=== PATIENT | female | born 1965 | race Caucasian/White ===

== ENCOUNTER 2018-10-19 15:03 | Emergency (ER) | payer OTHER ==
--- OUTSIDE RECORDS SUMMARY | 2018-10-19 15:06 | XMS REPORT | Clinical Summary ---
:1965 Author Organization [facility] Address [facility] [place] [address] Care Team Providers Name Role Phone Unavailable Primary Care Provider Unavailable Allergies No Known Allergies Medications Medication Sig Dispensed Refills Start End Date Status Date HYDROcodone-acetami Take 1 tablet by 0 Active nophen (NORCO) mouth every 6 10-325 mg tablet hours as needed for Pain. ferrous sulfate 325 Take 325 mg by 0 Active mg (65 mg iron) mouth daily (with tablet breakfast). zolpidem (AMBIEN) Take 10 mg by 0 Active 10 mg Tab mouth at bedtime nightly. busPIRone (BUSPAR) Take 15 mg by 0 Active 15 mg tablet mouth 2 times daily. LEVOTHYROXINE Take 1 tablet by 0 Active SODIUM mouth daily. (LEVOTHYROXINE OR) traZODone (DESYREL) Take 50 mg by 0 Active 25 mg tablet mouth at bedtime nightly. DULoxetine Take 60 mg by 0 Active (CYMBALTA) 60 mg mouth daily. delayed release capsule Carbamazepine 200 Take 200 mg by 0 Active mg 12 hr capsule mouth 2 times daily. hydrOXYzine pamoate Take 25 mg by 0 Active 25 mg capsule mouth 3 times daily as needed for Itching. DULoxetine Take 60 mg by 0 Active (CYMBALTA) 60 mg mouth daily. delayed release capsule nystatin (NYSTOP) Apply to affected 15 g 0 Active 100,000 unit/gram area 4 times 4 topical daily. powderIndications: Rheumatoid arthritis(714.0) INSULIN SYRINGE 1mL Use to inject 1 Box 1 Active 30GX5/16" (MONOJECT medication 6 ULTRACOMFORT weekly. Use a new INSULIN SYR 1ML syringe each 30GX5/16") time. syringe-needleIndic ations: Rheumatoid arthritis involving multiple sites with positive rheumatoid factor INSULIN SYRINGE 1mL Use to inject 1 Box 2 Active 30GX5/16" (MONOJECT medication 6 ULTRACOMFORT weekly. Use a new INSULIN SYR 1ML syringe each 30GX5/16") time. syringe-needleIndic ations: Rheumatoid arthritis involving right wrist with positive rheumatoid factor, Juvenile arthritis INSULIN SYRINGE 1mL Use to inject 1 Box 2 Active 30GX5/16" (MONOJECT medication 6 ULTRACOMFORT weekly. Use a new INSULIN SYR 1ML syringe each 30GX5/16") time. syringe-needleIndic ations: Rheumatoid arthritis involving right wrist with positive rheumatoid factor, Juvenile arthritis folic acid Take 2 tablets by 180 tablet 2 Active (FOLVITE) 1 mg mouth daily. 7 tabletIndications: Rheumatoid arthritis involving multiple sites with positive rheumatoid factor ergocalciferol Take 1 capsule by 4 capsule 3 Active (VITAMIN D2) 50,000 mouth weekly. 8 unit capsuleIndications: Vitamin D deficiency leucovorin calcium Take 1 tablet by 12 tablet 1 Active (LEUCOVORIN) 5 mg mouth weekly 8 tabletIndications: after Rheumatoid methotrexate arthritis involving injection every right wrist with week. positive rheumatoid factor predniSONE Take 1 tablet by 45 tablet 1 Active (DELTASONE) 5 mg mouth every 48 8 tabletIndications: hours. Rheumatoid arthritis involving multiple sites with positive rheumatoid factor methotrexate, PF, Inject 1 mL under 5 mL 4 Active 25 mg/mL the skin weekly. 8 injectionIndication s: Rheumatoid arthritis involving right wrist with positive rheumatoid factor, Juvenile arthritis adalimumab (HUMIRA Inject 0.8 mL 2 Each 4 Active PEN) 40 mg/0.8 mL under the skin 8 pen kit every 14 days. injectionIndication s: Rheumatoid arthritis involving multiple sites with positive rheumatoid factor INSULIN SYRINGE 1mL Use to inject 1 Box 1 Active 30GX5/16" (MONOJECT medication 8 ULTRACOMFORT weekly. Use a new INSULIN SYR 1ML syringe each 30GX5/16") time. syringe-needleIndic ations: Rheumatoid arthritis involving right wrist with positive rheumatoid factor, Juvenile arthritis ergocalciferol Take 1 capsule by 4 capsule 3 01/22/20 Discontinued (VITAMIN D) 50,000 mouth weekly. 4 18 unit capsuleIndications: Rheumatoid arthritis(714.0) methotrexate Take 8 tablets by 40 tablet 4 05/20/20 Discontinued (TREXALL) 2.5 mg mouth weekly. 5 18 tabletIndications: Rheumatoid arthritis(714.0) methotrexate, PF, Inject 0.8 mL SC 4 mL 4 05/20/20 Discontinued 25 mg/mL every week.. 6 18 injectionIndication s: Rheumatoid arthritis involving multiple sites with positive rheumatoid factor adalimumab (HUMIRA Inject 0.8 mL 2 Each 4 01/22/20 Discontinued PEN) 40 mg/0.8 mL under the skin 6 18 pen kit every 14 days. injectionIndication s: Rheumatoid arthritis involving multiple sites with positive rheumatoid factor predniSONE Take 1 tablet by 30 tablet 4 05/20/20 Discontinued (DELTASONE) 5 mg mouth daily. 7 18 tabletIndications: Rheumatoid arthritis involving right wrist with positive rheumatoid factor, Juvenile arthritis adalimumab (HUMIRA Inject 0.8 mL 2 Each 4 05/20/20 Discontinued PEN) 40 mg/0.8 mL under the skin 8 18 pen kit every 14 days. injectionIndication s: Rheumatoid arthritis involving right wrist with positive rheumatoid factor, Juvenile arthritis leucovorin calcium Take 1 tablet by 4 tablet 4 01/22/20 Discontinued (LEUCOVORIN) 5 mg mouth weekly 8 18 tabletIndications: after Rheumatoid methotrexate arthritis involving injection every right wrist with week. positive rheumatoid factor predniSONE Take 1 tablet by 90 tablet 1 01/22/20 Discontinued (DELTASONE) 5 mg mouth daily. 8 18 tabletIndications: Rheumatoid arthritis involving multiple sites with positive rheumatoid factor methotrexate, PF, Inject 1 mL under 5 mL 4 01/22/20 Discontinued 25 mg/mL the skin weekly. 8 18 injectionIndication s: Rheumatoid arthritis involving right wrist with positive rheumatoid factor, Juvenile arthritis INSULIN SYRINGE 1mL Use to inject 1 Box 1 05/20/20 Discontinued 30GX5/16" (MONOJECT medication 8 18 ULTRACOMFORT weekly. Use a new INSULIN SYR 1ML syringe each 30GX5/16") time. syringe-needleIndic ations: Rheumatoid arthritis involving right wrist with positive rheumatoid factor, Juvenile arthritis leucovorin calcium Take 1 tablet by 4 tablet 4 05/20/20 Discontinued (LEUCOVORIN) 5 mg mouth weekly 8 18 tabletIndications: after Rheumatoid methotrexate arthritis involving injection every right wrist with week. positive rheumatoid factor predniSONE Take 1 tablet by 45 tablet 1 05/20/20 Discontinued (DELTASONE) 5 mg mouth every 48 8 18 tabletIndications: hours. Rheumatoid arthritis involving multiple sites with positive rheumatoid factor methotrexate, PF, Inject 1 mL under 5 mL 4 05/20/20 Discontinued 25 mg/mL the skin weekly. 8 18 injectionIndication s: Rheumatoid arthritis involving right wrist with positive rheumatoid factor, Juvenile arthritis adalimumab (HUMIRA Inject 0.8 mL 2 Each 4 05/20/20 Discontinued PEN) 40 mg/0.8 mL under the skin 8 18 pen kit every 14 days. 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 Hospital Encounter Lab Aston Trammell MD Seropositive rheumatoid arthritis; Vitamin D deficiency 01/21/2018 Hospital Encounter Radiology Aston Trammell MD Seropositive rheumatoid arthritis 01/21/2018 Office Visit Rheumatology Aston Trammell MD Seropositive rheumatoid arthritis (Primary Dx); Josue Guy, Osteoarthritis of both knees, unspecified osteoarthritis type; Cherise Rees MD Stomatitis; Vitamin D deficiency; Lip lesion; Rheumatoid arthritis involving right wrist with positive rheumatoid factor; Rheumatoid arthritis involving multiple sites with positive rheumatoid factor; 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 Last Filed Vital Signs Vital Sign Reading Time Taken Blood Pressure 121/74 05/20/2018 9:11 AM CDT Pulse 86 05/20/2018 9:11 AM CDT Temperature 36.7 C (98.1 F) 05/20/2018 9:11 AM CDT Respiratory Rate 17 05/20/2018 9:11 AM CDT Oxygen Saturation 100% 01/21/2018 7:15 AM CDT Inhaled Oxygen Concentration - - Weight 74.8 kg (165 lb) 05/20/2018 9:11 AM CDT Height 167.6 cm (5' 6") 05/20/2018 9:11 AM CDT Body Mass Index 26.63 05/20/2018 9:11 AM CDT Plan of Treatment Health Maintenance Due Date Last Done Comments Cervical Cancer Scrn (3 Yrs) 1986 Breast Cancer Scrn (Yearly) 2005 Colorectal Cancer Scrn Annual (FIT/FOBT) Age 50 to 75 2015 IMM Influenza Seasonal May to October (>/=19 yrs) 05/03/2018 Procedures Procedure Name Priority Date/Time Associated Diagnosis Comments CRP, HIGH SENS Routine 05/20/2018 11:15 Rheumatoid arthritis Results for this AM CDT involving right procedure are in wrist with positive the results rheumatoid factor section. SED RATE Routine 05/20/2018 11:15 Rheumatoid arthritis Results for this AM CDT involving right procedure are in wrist with positive the results rheumatoid factor section. COMPREHENSIVE Routine 05/20/2018 11:15 Rheumatoid arthritis Results for this METABOLIC PANEL(DBIL AM CDT involving right procedure are in NOT INCLUDED) wrist with positive the results rheumatoid factor section. CBC/DIFF Routine 05/20/2018 11:15 Rheumatoid arthritis Results for this AM CDT involving right procedure are in wrist with positive the results rheumatoid factor section. QUANTIFERON TB GOLD Routine 01/21/2018 10:25 Results for this AM CDT procedure are in the results section. VIT D, 25-HYDROXY Routine 01/21/2018 10:25 Results for this AM CDT procedure are in the results section. QUANTIFERON TB GOLD Routine 01/21/2018 10:25 AM CDT SED RATE Routine 01/21/2018 10:25 Results for this AM CDT procedure are in the results section. C-REACTIVE PROT Routine 01/21/2018 10:25 Results for this AM CDT procedure are in the results section. LIVER PROFILE Routine 01/21/2018 10:25 Seropositive Results for this AM CDT rheumatoid arthritis procedure are in the results section. BASIC METABOLIC PANEL Routine 01/21/2018 10:25 Seropositive Results for this AM CDT rheumatoid arthritis procedure are in the results section. CBC/DIFF Routine 01/21/2018 10:25 Seropositive Results for this AM CDT rheumatoid arthritis procedure are in the results section. XRAY HAND 3 VIEWS - Routine 01/21/2018 10:05 Seropositive Results for this ROUTINE AM CDT rheumatoid arthritis procedure are in the results section. XRAY HAND 3 VIEWS - Routine 01/21/2018 10:05 Seropositive Results for this ROUTINE AM CDT rheumatoid arthritis procedure are in the results section. after 10/18/2017 Results COMPREHENSIVE METABOLIC PANEL(DBIL NOT INCLUDED) (05/20/2018 11:15 AM CDT) Albumin 3.1 (L) 3.4 - 5.0 g/dL [facility] 1 Calcium 8.6 8.50 - 10.20 [facility] 1 mg/dL CO2 28 21 - 32 mmol/L [facility] 1 Chloride 95 (L) 98 - 107 mmol/L [facility] 1 Creatinine 0.56 (L) 0.60 - 1.30 [facility] 1 mg/dL Glucose 95 70 - 99 mg/dL [facility] 1 Alk Phos 115 45 - 117 U/L [facility] 1 Potassium 3.9 3.50 - 5.10 [facility] 1 mmol/L Sodium 129 (L) 136 - 145 mmol/L [facility] 1 ALT 27 12 - 78 U/L [facility] 1 AST 10 (L) 15 - 37 U/L [facility] 1 Urea Nitrogen 10 7 - 18 mg/dL [facility] 1 T Bilirubin 0.4 0.2 - 1.0 mg/dL [facility] 1 T Protein 6.4 6.4 - 8.2 g/dL [facility] 1 GFR, Estimated >60 mL/min/1.73 m2 [facility] 1 GFR, Estim, Afr-Am >60 mL/min/1.73 m2 [facility] 1 Anion Gap 6 [facility] 1 Specimen Blood Performing Organization Address [facility] Phone Number [facility] 1 CRP, HIGH SENS (05/20/2018 11:15 AM CDT) CRP, high sens 63.034 (H) <1.0 mg/dL [facility] 1 Specimen Blood Performing Organization Address [facility] Phone Number [facility] 1 SED RATE (05/20/2018 11:15 AM CDT)Only the most recent of2 resultswithin the time period is included. Sed Rate 18 <30 mm/Hr [facility] 2 Specimen Blood Performing Organization Address [facility] Phone Number [facility] 2 CBC/DIFF (05/20/2018 11:15 AM CDT)Only the most recent of2 resultswithin the time period is included. WBC 6.5 4.5 - 11.0 K/uL [facility] 2 RBC 3.46 (L) 4.20 - 5.40 [facility] 2 M/uL Hemoglobin 10.0 (L) 12.0 - 16.0 [facility] 2 g/dL Hematocrit 33.8 (L) 37.0 - 47.0 % [facility] 2 MCV 98 (H) 82 - 92 fL [facility] 2 MCH 28.9 27.0 - 32.0 pg [facility] 2 MCHC 29.6 (L) 32.0 - 36.0 [facility] 2 g/dL RDW 54.0 (H) 36.4 - 46.3 fL [facility] 2 Platelet 421 (H) 150 - 400 K/uL [facility] 2 Mean Platelet Volume 9.7 9.4 - 12.4 fL [facility] 2 Percent NRBC 0.0 [facility] 2 Absolute NRBC 0.00 [facility] 2 Neutrophil 69.1 34.0 - 70.0 % [facility] 2 Lymphocyte 25.1 20.0 - 50.0 % [facility] 2 Monocyte 4.0 (L) 5.0 - 12.0 % [facility] 2 Eosinophil 1.2 0.7 - 5.0 % [facility] 2 Basophil 0.3 0.1 - 1.2 % [facility] 2 Pct Immat Gran 0.3 0.0 - 0.5 [facility] 2 Neutrophil, Abs 4.48 1.56 - 6.13 [facility] 2 K/uL Lymphocyte, Abs 1.63 1.18 - 3.74 [facility] 2 K/uL Monocyte, Abs 0.26 0.24 - 0.36 [facility] 2 K/uL Eosinophil, Abs 0.08 0.04 - 0.36 [facility] 2 K/uL Basophil, Abs 0.02 0.01 - 0.08 [facility] 2 K/uL Absol Immat Gran 0.02 0.00 - 0.03 [facility] 2 K/uL Specimen Blood Performing Organization Address City/State/[facility] Phone Number [facility] 2 VIT D, 25-HYDROXY (01/21/2018 10:25 AM CDT) Vit D, 25-Hydroxy 26.7 (L) 30 - 100 [facility] DIAGNOSTIC Comment: ng/mL IMMUNOLOGY Vitamin D deficiency has been defined by the [place] of Medicine and Endocrine Society guideline as a level of serum 25-OH Vitamin D less than 20 ng/mL. The Endocrine Society further defines Vitamin D insufficiency as a level between 21 and 29 ng/mL and sufficiency as a level between 30 and 100 ng/mL. Performing Organization Address City/State/Zipcode Phone Number [facility] BT DIAGNOSTIC IMMUNOLOGY QUANTIFERON TB GOLD (01/21/2018 10:25 AM CDT) Quantiferon TBGold Negative LABORATORY Reference range: Negative [facility] [place] QFT Pos Criteria Comment LABORATORY (note) CORPORATION OF To be considered positive a specimen should have a TB Ag minus Nil [place] value greater than or equal to 0.35 IU/mL and in addition the TB Ag minus Nil value must be greater than or equal to 25% of the Nil value. There may be insufficient information in these values to differentiate between some negative and some indeterminate test values. QFT TB Ag 0.05 LABORATORY Unit: IU/mL [facility] QFT Nil 0.06 LABORATORY Unit: IU/mL [facility] QFT Mitogen 6.77 LABORATORY Unit: IU/mL [facility] QFT TB Ag minusNil <0.00 LABORATORY Unit: IU/mL [facility] Interpretation Comment LABORATORY (note) CORPORATION OF The QuantiFERON TB Gold (in Tube) assay is intended for use as an aid [place] in the diagnosis of TB infection. Negative results suggest that there is no TB infection. In patients with high suspicion of exposure, a negative test should be repeated. A positive test indicates infection with Mycobacterium tuberculosis. Among individuals without tuberculosis infection, a positive test may be due to exposure to M. k[place]ii, M. szulgai or M. marinum. On the Internet, go to cdc.gov/tb for further details. Performing Organization Address City/[facility]/Zipcode Phone Number [facility] OF [address] [place] [address] [address] LIVER PROFILE (01/21/2018 10:25 AM CDT) T Protein 7.6 6.4 - 8.2 g/dL [facility] 1 Albumin 4.1 3.4 - 5.0 g/dL [facility] 1 T Bilirubin 0.3 0.2 - 1.0 mg/dL [facility] 1 Alk Phos 120 (H) 45 - 117 U/L [facility] 1 AST 13 (L) 15 - 37 U/L [facility] 1 ALT 25 12 - 78 U/L [facility] 1 D Bilirubin <0.1 0.0 - 0.2 mg/dL [facility] 1 Specimen Blood Performing Organization Address [facility]/Zipcode Phone Number [facility] 1 C-REACTIVE PROT (01/21/2018 10:25 AM CDT) C-Reactive Prot 0.758 <10 mg/dL [facility] 3 Performing Organization Address [facility] Phone Number [facility] 3 BASIC METABOLIC PANEL (01/21/2018 10:25 AM CDT) CO2 27 21 - 32 mmol/L [facility] 1 Chloride 106 98 - 107 mmol/L [facility] 1 Potassium 5.4 (H) 3.50 - 5.10 [facility] 1 mmol/L Sodium 139 136 - 145 mmol/L [facility] 1 Glucose 117 (H) 70 - 99 mg/dL [facility] 1 Urea Nitrogen 12 7 - 18 mg/dL [facility] 1 Creatinine 0.85 0.60 - 1.30 mg/dL [facility] 1 Anion Gap 6 [facility] 1 Calcium 9.8 8.50 - 10.20 [facility] 1 mg/dL GFR, Estimated >60 mL/min/1.73 m2 [facility] 1 GFR, Estim, Afr-Am >60 mL/min/1.73 m2 [facility] 1 Specimen Blood Performing Organization Address City/State/Zipcode Phone Number [facility] 1 XRAY HAND 3 VIEWS - ROUTINE (01/21/2018 10:05 AM CDT)Only the most recent of2 resultswithin the time period is included. Impressions Performed At IMPRESSION:Intercarpal and metacarpophalangeal joint narrowing, SMS severe at the metacarpophalangeal joint of the thumb on the left are unchanged from 2016. No new erosions and narrowing in the interim. Signed By: Meme Mcintyre MD, 01/21/2018 10:31 AM Narrative Performed At EXAM: XR BILATERAL HAND 3 VIEWS SMS DATE:01/21/2018 10:06 AM INDICATION: History of seropositive RA / Juvenile arthritis. Seropositive rheumatoid arthritis COMPARISON: 03/13/2016 TECHNIQUE:PA, lateral and oblique hand radiographs DISCUSSION: Diffuse, mild intercarpal narrowing is present bilaterally, without acute erosions. Metacarpophalangeal joint narrowing is most evident at the thumb, index, middle and small finger MCP joints on the left and small metacarpophalangeal joints on the right. Chronic erosive change and secondary osteoarthrosis of present at the thumb metacarpophalangeal joint on the left, not significantly changed in appearance from 03/13/2016. No new erosions. Small osteophytes are present at the dorsal aspect of the DIP joints. No soft tissue abnormality is identified. Procedure Note Interface, Rad/Mammog In - 01/21/2018 10:36 AM CDT EXAM: XR BILATERAL HAND 3 VIEWS DATE: 01/21/2018 10:06 AM INDICATION: History of seropositive RA / Juvenile arthritis. Seropositive rheumatoid arthritis COMPARISON: 03/13/2016 TECHNIQUE: PA, lateral and oblique hand radiographs DISCUSSION: Diffuse, mild intercarpal narrowing is present bilaterally, without acute erosions. Metacarpophalangeal joint narrowing is most evident at the thumb, index, middle and small finger MCP joints on the left and small metacarpophalangeal joints on the right. Chronic erosive change and secondary osteoarthrosis of present at the thumb metacarpophalangeal joint on the left, not significantly changed in appearance from 03/13/2016. No new erosions. Small osteophytes are present at the dorsal aspect of the DIP joints. No soft tissue abnormality is identified. IMPRESSION IMPRESSION: Intercarpal and metacarpophalangeal joint narrowing, severe at the metacarpophalangeal joint of the thumb on the left are unchanged from 2016. No new erosions and narrowing in the interim. Signed By: Meme Mcintyre MD, 01/21/2018 10:31 AM Performing Organization Address City/State/[facility] Phone Number SMS after 10/18/2017 Insurance Payer Benefit Plan / Subscriber ID Effective Phone Address Type Group Dates [facility] MEDIC[facility] xxxxxxxxx 2017-Prese [phone] [phone] [place] [address] [place] 2017-Pres [phone] [place] [address] (Home) Mg [address] [place] [address]
--- OUTSIDE RECORDS SUMMARY | 2018-10-19 15:06 | XMS REPORT ---
:1965 [facility] [address] [place] [address] Care Team Providers Name Role Phone Unavailable Unavailable Unavailable Problems This patient has no known problems. Allergies, Adverse Reactions, Alerts This patient has no known allergies or adverse reactions. Medications This patient has no known medications. Encounters Start End Encounter Admission Attending Care Care Encounter Date/Time Date/Time Type Type Clinicians Facility Department ID 2018-09-09 2018-09-09 Outpatient [facility] [id number] 00:00:00 00:00:00 2018-09-09 2018-09-09 Outpatient [facility] [id number] 00:00:00 00:00:00 2018-08-17 2018-08-17 Outpatient [facility] [id number] 00:00:00 00:00:00 2018-06-18 2018-06-18 Outpatient [facility] [id number] 00:00:00 00:00:00 2018-05-20 2018-05-20 Outpatient [facility] [id number] 10:57:31 10:57:31 2018-05-20 2018-05-20 Outpatient [facility] [id number] 09:11:07 09:11:07 2018-02-01 2018-02-01 Outpatient [facility] [id number] 00:00:00 00:00:00 2018-01-21 2018-01-21 Outpatient [facility] [id number] 10:16:37 10:16:37 2018-01-21 2018-01-21 Outpatient [facility] [id number] 09:49:14 09:49:14 2018-01-21 2018-01-21 Outpatient [facility] [id number] 07:15:28 07:15:28 2017-12-01 2017-12-01 Outpatient [facility] [id number] 00:00:00 00:00:00 2017-09-17 2017-09-17 Outpatient [facility] [id number] 08:32:03 08:32:03 2017-09-17 2017-09-17 Outpatient [facility] [id number] 07:42:53 07:42:53 2017-09-17 2017-09-17 Outpatient [facility] [id number] 00:00:00 00:00:00 2017-08-31 2017-08-31 Outpatient [facility] [id number] 00:00:00 00:00:00 2017-08-10 2017-08-10 Outpatient [facility] [id number] 00:00:00 00:00:00 2017-08-10 2017-08-10 Outpatient [facility] [id number] 00:00:00 00:00:00 2017-05-14 2017-05-14 Outpatient [facility] [id number] 12:02:38 12:02:38 2017-05-14 2017-05-14 Outpatient [facility] [id number] 09:32:42 09:32:42 2017-05-07 2017-05-07 Outpatient [facility] [id number] 00:00:00 00:00:00 2017-02-12 2017-02-12 Outpatient [facility] [id number] 09:12:49 09:12:49 2017-02-12 2017-02-12 Outpatient [facility] [id number] 08:20:37 08:20:37
[2018-10-19] MEDS ORDERED: KETOROLAC 30 MG/ML INJ ONE (15:42)
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
--- NOTE | 2018-10-19 16:29 | RAD REPORT ---
EXAM DESCRIPTION: Cassandra Single View10/19/2018 4:15 pm CLINICAL HISTORY: Chest pain COMPARISON: none FINDINGS: The lungs appear clear of acute infiltrate. The heart is normal size IMPRESSION: No acute abnormalities displayed
--- NOTE | 2018-10-19 16:31 | RAD REPORT ---
EXAM DESCRIPTION: RAD - Shoulder Right 2 View - 10/19/2018 4:15 pm CLINICAL HISTORY: Right shoulder pain FINDINGS: No fracture or dislocation is seen.
== END 2018-10-19 16:57 | disposition home or self-care (01) ==
LOC: ER 15:03
DX: M25.511 Pain in right shoulder (principal); V43.52XA Car driver injured in collision with other type car in traffic accident, initial encounter; Y93.89 Activity, other specified; Y92.9 Unspecified place or not applicable
CPT/HCPCS: 71045; 96372; 99284